=== PATIENT | female | born 1965 | race American Indian/Alaskan Native ===

== ENCOUNTER 2017-02-07 09:27 | Day surgery (SDC) | payer BC ==
[2017-02-07 09:45] VITALS: BMI 31.1
[2017-02-07] MEDS ORDERED: Propofol 10 mg/ml Inj (20 ML) ONE (12:44)
[2017-02-07] MEDS ORDERED: Midazolam 2 MG/2 ML VIAL ONE (12:44)
[2017-02-07] MEDS ORDERED: Lactated Ringer's 1,000 ML IV ONE (12:50)
[2017-02-07] MEDS ORDERED: HYDROmorphone 0.5 mg/0.5 ml ISec IVP PRN (13:13)
[2017-02-07] MEDS ORDERED: Bupivacaine HCl 0.5% PF (10 ml) Inj ONE (13:17)
[2017-02-07 15:33] VITALS: BP 99/66; PULSE 69; RESP 18; TEMP 97.8; O2SAT 100
--- NOTE | 2017-02-07 18:42 | PCM.SURG1 ---
Surgeon's Initial Post Op Note - Surgeon's Notes Surgeon: Gila Blandon MD Director Translation: None Type of Anesthesia: General LMA, Local Pre-Operative Diagnosis: Right hand middle finger trigger finger Operative Findings: RIght hand middle finger trigger finger/flexor tenosynovitis Post-Operative Diagnosis: RIght hand middle finger trigger finger/flexor tenosynovitis Operation Performed: Right hand #1 open trigger finger release (release A1 owen). #2 debridement/synovectomy FDP/FDS tendons at level of A1 owen Specimen/Specimens Removed: specimen= none. tourniquet time= 0min. complications= none. Implants= none Estimated Blood Loss: EBL {In ML}: 5 Blood Products Given: N/A Drains Used: No Drains Post-Op Condition: Good Date of Surgery/Procedure: 02/07/17 Time of Surgery/Procedure: 13:00
--- NOTE | 2017-02-09 20:45 | OP ---
PROCEDURE DATE: 02/07/2017 PREOPERATIVE DIAGNOSES: Right hand middle finger trigger finger. POSTOPERATIVE DIAGNOSES: Right hand middle finger: 1. Trigger finger. 2. Flexor digitorum profundus and flexor digitorum superficialis tenosynovitis of the tendons. PROCEDURE: Right hand middle finger, open: 1. Trigger finger release. 2. Debridement of flexor tendons. SPECIMENS: None. TOURNIQUET TIME: Zero minutes. DRAINS: None. IMPLANTS: None. ESTIMATED BLOOD LOSS: 5 mL. DISPOSITION: The patient was awakened from anesthesia and transferred to PACU in stable condition. SURGEON: Gila Blandon MD AGENCY RECRUITER: None. ANESTHESIA: General LMA anesthesia with local anesthetic placed at the surgical wound. INDICATIONS FOR SURGERY: The patient is a 50-year-old female who is right-hand dominant with no sign ificant past medical history who presented to the office for the first time under my care with bilate ral hand pain with triggering that was waxing and waning since 2010. 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 This started in 01/2011 and continued to prog ressively worsen, so she saw me in the office. On 05/10/2016, the pain was so severe that she went t o the Emergency Room at [facility] where she was evaluated by ER staff and diagnosed with bilateral hand tendinitis. She was given anti-inflammatory medication and referred to follow up with an orthopedic surgeon as an outpatient. Since then, her pain has pretty much been consistent. X-rays taken in the office on her initial consultation on 06/11/2016 were normal with no evidence of fracture or dislocation or any evidence of DJD. Her main complaint is of the right hand, which pain was much worse than the left hand, was pain localized to the flexor tendon of the thumb without trig gering as well as reproducible triggering localized to the flexor tendon of the middle finger. On physical examination, the right hand middle finger had a palpable nodule at the A1 owen as well as reproducible triggering with pain and locking. The thumb had tenderness to palpation along the fl exor tendon as well as pain with resisted thumb flexion at the IP joint and MCP joint. She was start ed with conservative treatment including anti-inflammatory medication, occupational therapy and compo und pain cream. The right hand underwent a cortisone mixture injection to the middle finger A1 pulle y/trigger finger area. The pain was markedly improved down to being rated 0/10, but she still did [place] ve consistent triggering. Finally, on 01/02/2017, at her followup, the right hand pain had returned and was rated 9/10. She had also slammed her right hand into a wall that also resulted in 3rd metaca rpal pain. She has tenderness to palpation along the third metacarpal on both the palmar and dorsal aspects. She was referred for an MRI that showed no evidence of fracture with a possible contusion o f the third metacarpal and third flexor and extensor tendon tenosynovitis. Once again, on examinatio n, she had a reproducible A1 owen nodule and triggering with locking. Once again, the pain did imp rove with a cortisone mixture injection applied locally at the A1 owen area. The pain and the trig gering began to become a significant negative impact on her quality of life as well as her ability to perform her job duties at work. Finally, she was indicated for right hand middle finger open trigge r finger release/release of A1 owen, and all related indicated procedures. I spent a long time wit h the patient explaining the risks, benefits, and alternatives of the procedure with the risks includ ing, but not limited to infection, neurovascular damage, need for further surgery, recurrence of trig gering, inability to return to work and pre-injury activity level, loss of function, development of c hronic pain and disability, development of blood clots including DVT and PE, anesthesia reactions inc luding . After answering all of her questions, she stated that she understood the risks and wis hed to proceed with surgery. She watched the surgical animation videos and diagnosis animation video s and stated that she understood the diagnosis as well as the procedure to be done. She was referred to her primary care physician for preoperative medical evaluation and the procedure was scheduled. PROCEDURE IN DETAIL: The patient was identified in the preoperative holding area and the right hand was marked for surgery. Once again, as described above, the risks, benefits, and alternative procedu res were discussed at length with the patient and informed consent was obtained. After brief discuss ion with anesthesia staff, perioperative IV antibiotics in the form of 900 mg clindamycin was adminis tered, the patient has a PENICILLIN ALLERGY. She was taken to the OR and placed in a well-padded ope rating room table with all bony prominences and superficial structures well padded. An initial timeout was done with the surgeon, anesthesia staff, and OR staff, all in agreement with the patient , procedure being done, and extremity being operated on. General anesthesia was administered in the form of LMA anesthesia without any complications. The right upper extremity was then prepped and cheryl ped in a standard sterile fashion with a tourniquet placed high on the right arm, but never inflated. A final timeout was done with the surgeon, anesthesia staff, and OR staff, all were in agreement wi th the patient, procedure being done, and extremity being operated on. The right hand middle finger A1 owen was palpated and directly overlying the nodule along the third metacarpal head, an incision was made perpendicular to the long access of the arm measuring approximately 2-3 cm in length. Inci brent made through skin down to subcutaneous tissue while maintaining good hemostasis down to the leve l of the palmar fat. The underlying flexor digitorum and flexor profundus tendons were identified as well as the overlying thickened A1 owen. Under direct visualization, the A1 owen had reproducib le triggering and locking. While protecting the underlying flexor tendons with a blunt /instrum ent a sharp blade was used to sharply incise the A1 owen completely and the trigger finger release was completed. The underlying flexor tendons were carefully evaluated and inspected. The flexor dig itorum superficialis and flexor digitorum profundus at that level both exhibited signs of tenosynovit is and tendinopathy which was carefully debrided. At that point in time, the wound was copiously irr igated and good hemostasis was achieved. Under direct visualization and range of motion of the finge r, there was no longer any triggering or locking. A 2.0 unbraided nylon suture was then used to reap proximate the skin in horizontal mattress fashion. Once the skin was reapproximated, sterile dressin gs were applied and the patient was awakened from anesthesia and transferred to PACU in stable condit ion. Prior to application of dressings, local anesthetic with 0.5% Marcaine without epinephrine, lamar roximately 6 mL in total, was injected locally at the wound to help with postop pain control. Once a gain, the patient was extubated and transferred to PACU in stable condition and tolerated the procedu re well. DISPOSITION: The patient will be discharged home once she has recovered from anesthesia. She will f ollow up in the office at [facility] within 1 week and already has her postoperative appoin tment set up. She has been given a prescription for Percocet for pain control. She will contact me directly with any questions or concerns. She is instructed to keep the dressings clean, dry, and int act and work on gentle progressive range of motion with the use of a clean sponge at home. She will be referred to return to occupational therapy after her first postoperative visit. Gila Blandon MD cc: [id number] TT: 02/09/2017 20:44:53 alin
== END 2017-02-07 16:02 | disposition home or self-care (01) ==
LOC: C.SDS 09:27
PROVIDERS: ATTEND Student in an Organized Health Care Education/Training Program
DX: M65.331 Trigger finger, right middle finger (principal); M65.88 Other synovitis and tenosynovitis, other site
CPT/HCPCS: 26145; J1170; J2250; J2704; J3010; J7120